=== PATIENT | male | born 1980 | race Caucasian/White ===

== ENCOUNTER 2017-08-24 17:57 | Emergency (ER) | payer MEDICAID ==
[~2017-08-24] VITALS: Ht 172.7 cm; Wt 99.3 kg
[2017-08-24 18:18] VITALS: BP 139/82
[2017-08-24] MEDS ORDERED: DILTIAZEM 125 MG in DEXTROSE 5% 100 ML IV ONE (18:45)
[2017-08-24] MEDS ORDERED: DILTIAZEM 25 MG/5 ML VIAL IVP ONE (18:45)
[2017-08-24 18:47] LABS: BASOPHILS # (AUTO) 0.1 K/uL (0.00-0.22); BASOPHILS % (AUTO) 0.5 % (0.0-2.0); EOSINOPHILS # (AUTO) 0.1 K/uL (0-0.4); EOSINOPHILS % (AUTO) 1.2 % (0.0-4.0); HEMATOCRIT 47.2 % (36-52); LYMPHOCYTES # (AUTO) 4.5 K/uL (2.0-11.5); MEAN CORPUSCULAR HEMOGLOBIN 29 pg (27-31); MEAN CORPUSCULAR HGB CONC 34 g/dL (33-37); MEAN CORPUSCULAR VOLUME 86 fL (80-94); MONOCYTES % (AUTO) 8.4 % (1.7-9.3); NEUTROPHILS # (AUTO) 6.3 K/uL (1.8-7.7); NEUTROPHILS % (AUTO) 52.9 % (42.2-75.2); PLATELET COUNT (AUTO) 324 K/uL (140-450); RED CELL DISTRIBUTION WIDTH 12.4 % (11.6-13.7)
[2017-08-24] MEDS ORDERED: DILTIAZEM 125 MG/25 ML VIAL IV ONE (18:55)
--- NOTE | 2017-08-24 18:57 | NUR ---
PATIENT PRESENTS TO ED WITH PALPITATIONS WITH ANTERIOR CHEST WALL PAIN LEFT SIDE . PT STATES . DENIES N/V/D; SKIN IS PINK/WARM/DRY; AAOX4 WITH EVEN AND STEADY GAIT; LUNGS CLEAR BL; HR EVEN AND REGULAR; PT DENIES ANY FEVER, COUGH AT THIS TIME; PATIENT STATES PAIN OF 5/10 AT THIS TIME; VSS; PATIENT POSITIONED FOR COMFORT; HOB ELEVATED; BEDRAILS UP X2; BED DOWN. ER MD MADE AWARE OF PT STATUS.
[2017-08-24 19:08] LABS: ANION GAP 17.6 (8-16); CARBON DIOXIDE 24.6 mmol/L (21-32); POTASSIUM 4.2 mmol/L (3.5-5.1)
--- NOTE | 2017-08-24 19:10 | NUR ---
REMAINS NSR AT THIS TIME
--- NOTE | 2017-08-24 19:12 | NUR ---
REPORT GIVEN TO ARACELI CAGLE
[2017-08-24 19:14] LABS: ALBUMIN 4.1 g/dL (3.4-5.0); TOTAL BILIRUBIN 0.4 mg/dL (0.0-1.0)
[2017-08-24 19:17] LABS: PROTHROMBIN TIME 10.7 secs (10.8-13.4)
--- NOTE | 2017-08-24 19:39 | NUR ---
PT LAYING IN BED VSS, HR 87, PT IN NO DISTRESS, CALM, AT BEDSIDE.
[2017-08-24 20:12] LABS: THYROID STIMULATING HORMONE 1.6 uIU/mL (0.34-3.74)
--- NOTE | 2017-08-24 20:15 | NUR ---
HOLDING CARDIZEM DRIP, PT HEART RATE STABLE AT 83-87 AT THIS TIME S/P CARDIZEM IVP.
--- NOTE | 2017-08-24 20:36 | NUR ---
Patient being evaluated by physician at bedside.
[2017-08-24 21:33] VITALS: BP 130/89
--- NOTE | 2017-08-24 21:33 | NUR ---
Patient discharged with v/s stable. Written and verbal after care instructions given and explained. Patient verbalized understanding. Ambulatory with steady gait. All questions addressed prior to discharge. Advised to follow up with PMD.
== END 2017-08-24 21:33 | disposition home or self-care (01) ==
LOC: MED 17:57
DX: I47.1 Supraventricular tachycardia (principal); Z90.89 Acquired absence of other organs; Z71.6 Tobacco abuse counseling
CPT/HCPCS: 36415; 71045; 80053; 81002; 83735; 83880; 84443; 84484; 85025; 85610; 85730; 93005; 96374; 99285; J3490; J7060; Q0092